=== PATIENT | male | born 1945 | race Hispanic/Latino ===

== ENCOUNTER 2017-09-01 11:38 | Emergency (ER) | payer OTHER ==
[2017-09-01] MEDS ORDERED: DEXAMETHASONE SOD PHOSPHATE 10MG/ML 1ML VIAL ONE (12:00)
[2017-09-01] MEDS ORDERED: KETOROLAC TROMETHAMINE 30MG/ML ONE (12:00)
== END 2017-09-01 13:10 | disposition home or self-care (01) ==
LOC: EDH 11:38
DX: S46.012A Strain of muscle(s) and tendon(s) of the rotator cuff of left shoulder, initial encounter (principal); F43.10 Post-traumatic stress disorder, unspecified; G25.81 Restless legs syndrome; Z98.890 Other specified postprocedural states; W18.39XA Other fall on same level, initial encounter; Y93.89 Activity, other specified; Y92.89 Other specified places as the place of occurrence of the external cause; Y99.8 Other external cause status
CPT/HCPCS: 73030; 96372 ×2; 99284; J1100; J1885